=== PATIENT | male | born 1995 | race Caucasian/White ===

== ENCOUNTER 2016-11-18 09:20 | Day surgery (SDC) | payer BC ==
[~2016-11-18 09:20] MED LIST: RINGERS SOLUTION,LACTATED 1,000 ML IV PRN; ceFAZolin SODIUM 1 GM VIAL IV PRN
[2016-11-18] MEDS ORDERED: RINGERS SOLUTION,LACTATED 1,000 ML IV ONE ×3 (10:08→12:39)
[2016-11-18 17:23] VITALS: BP 120/76
== END 2016-11-18 09:21 | disposition home or self-care (01) ==
LOC: AMB 09:20
PROVIDERS: ATTEND Orthopaedic Surgery
PROC: 01N40ZZ Release Ulnar Nerve, Open Approach (ICD-10-PCS; 2016-11-18)
PROC: 0PPG04Z Removal of Internal Fixation Device from Left Humeral Shaft, Open Approach (ICD-10-PCS; principal; 2016-11-18 12:00)
DX: T84.84XA Pain due to internal orthopedic prosthetic devices, implants and grafts, initial encounter (principal); G56.22 Lesion of ulnar nerve, left upper limb; Z68.20 Body mass index [BMI] 20.0-20.9, adult

== ENCOUNTER 2017-07-04 08:55 | Emergency (ER) | payer BC ==
[2017-07-04 09:01] VITALS: BP 138/77
--- NOTE | 2017-07-04 09:45 | ERNOTE ---
Upper Extremity HPI - General Extremities Pain Location: hand: right Time Seen by Provider: 07/04/17 09:28 Source: patient Exam Limitations: no limitations - Immun/Allergies/Home Medications Immunizations: IMMUNIZATION HX Immunizations Up to Date Yes Allergies/Adverse Reactions: Allergies Allergy/AdvReac Type Severity Reaction Status Date / Time bee pollen Allergy Intermediate BEE STINGS Verified 07/04/17 09:01 CAUSE SWELLING/BREATHING ISSUES Home Medications: HOME MEDICATIONS HYDROcodone/ACETAMINOPHEN [[place] 5-325] 1 each PO Q4H #20 tablet 07/04/17 [Last Taken Unknown] - History of Present Illness Narrative: Patient's workup car and the rim fell off and landed on the back of his right hand. He now has at least moderate to severe right hand pain with decreased replenishment analyst strength and edema. Occurred: other - this past Monday Location of Incident: home Severity: severe Method of Injury: Reports: direct blow Loss of Consciousness: Reports: no loss of consciousness Other Injuries: Reports: none Review of Systems - Review of Systems Constitutional: Present: See HPI EYE: Present: no symptoms reported ENT: Present: no symptoms reported Respiratory: Present: no symptoms reported Cardiology: Present: no symptoms reported Gastrointestinal/Abdominal: Present: no symptoms reported Genitourinary: Present: no symptoms reported Musculoskeletal: Present: See HPI, joint pain, joint swelling Skin: Present: no symptoms reported Neurological: Present: no symptoms reported Endocrine: Present: no symptoms reported Hematologic/Lymphatic: Present: no symptoms reported Psych: Present: no symptoms reported - Patient's Past Medical History Patient History - Medical: No pertinent hx Patient History - Cardiac/Respiratory: No pertinent hx Patient History - Cancer: No Hx of Cancer Patient History - Surgical Procedures: Ear Tubes, T & A, Orthopedic Patient History - Other: None - Family History Mother Family History - Medical: Diabetes Type 2 Family History - Cardiac/Respiratory: No pertinent hx Family History - Cancer: No pertinent family hx - Social History Living Situations: home Abuse History: No History of abuse Psych History: No pertinent hx Smoking Status: Current every day smoker Alcohol Use: none Drug Use: none - Immunizations Immunizations Up to Date: Yes Physical Exam - Physical Exam General Appearance: Present: wd/wn, alert, moderate distress Head Exam: Present: normal inspection Eye Exam: Normal inspection: bilateral, PERRL: bilateral Ears, Nose, Throat: Present: normal ENT inspection, H, normal pharynx Neck: Present: normal inspection, nontender Respiratory: Present: no respiratory distress, normal breath sounds, no accessory muscle use, chest nontender, lungs clear Cardiovascular/Chest: Present: regular rate, rhythm, no murmur, normal peripheral pulses Gastrointestinal/Abdominal: Present: normal bowel sounds, nontender, nondistended, soft, no organomegaly Rectal Exam: Present: deferred Back Exam: Present: normal inspection, normal range of motion Extremity Exam: Present: decreased range of motion, bony tenderness, joint swelling, extremity edema Neurological Exam: Present: alert, oriented, normal mood/affect Skin Exam: Present: normal color, warm/dry Lymphatic Exam: Present: no adenopathy ED Progress - Vital Signs Patient's Vital Signs:: I have reviewed the patient's vital signs. Vital Signs: Vital Signs 07/04/17 08:58 Temperature 36.8 C Pulse Rate 69 Respiratory 12 Rate Blood Pressure 138/77 O2 Sat by Pulse 99 Oximetry - X-Ray X-Ray #1 X-Ray: hand Interpretation: Reviewed by me - Progress/Reassessment Chief Complaint: Hand Injury/Pain Plan - Plan Plan: Patient will be placed in a splint to help stabilize the area across the fractured fourth metacarpal. Patient will be referred to Dr. Lou and patient was told he will likely need to have a cast of some sort placed. Patient was given tramadol for the pain. Departure Clinical Impression: Fracture of metacarpal Qualifiers: Encounter type: initial encounter Metacarpal bone: fourth Fracture type: closed Metacarpal location: base Fracture alignment: nondisplaced Laterality: right Qualified Code(s): S62.344A - Nondisplaced fracture of base of fourth metacarpal bone, right hand, initial encounter for closed fracture - Departure Disposition: Home self-care Condition: Good Instructions: Metacarpal Fracture, [id number] Additional Instructions: Call Dr. Lou's office today and they will work you in to be seen tomorrow. Referrals: Blayne Lou MD [Staff Physician] - Prescriptions: HYDROcodone/ACETAMINOPHEN [[place] 5-325] 1 each PO Q4H #20 tablet
[2017-07-04] MEDS ORDERED: HYDROcodone/ACETAMINOPHEN 1 EACH TABLET PO ONE (09:47)
[2017-07-04] MEDS ORDERED: HYDROcodone/ACETAMINOPHEN 1 EACH TABLET ONE (09:49)
== END 2017-07-04 09:56 | disposition home or self-care (01) ==
LOC: ER 08:55
PROC: 2W3EX1Z Immobilization of Right Hand using Splint (ICD-10-PCS; principal; 2017-07-04)
DX: S62.344A Nondisplaced fracture of base of fourth metacarpal bone, right hand, initial encounter for closed fracture (principal); W20.8XXA Other cause of strike by thrown, projected or falling object, initial encounter; Y93.89 Activity, other specified; Y92.009 Unspecified place in unspecified non-institutional (private) residence as the place of occurrence of the external cause; F17.200 Nicotine dependence, unspecified, uncomplicated